=== PATIENT | female | born 1985 | race Hispanic/Latino ===

== ENCOUNTER 2020-06-18 15:26 | Outpatient (CLI) | payer BC | END 2020-06-18 15:27 | disposition home or self-care (01) | LOC: BICULT 15:26 | PROVIDERS: ATTEND Student in an Organized Health Care Education/Training Program | DX: N64.4 Mastodynia (principal) | CPT/HCPCS: 76999 ==

== ENCOUNTER 2024-02-19 13:35 | Outpatient (CLI) | payer BC | END 2024-02-19 13:36 | disposition home or self-care (01) | LOC: SCSRAD 13:35 | PROVIDERS: ATTEND Student in an Organized Health Care Education/Training Program | DX: J40 Bronchitis, not specified as acute or chronic (principal); R05.1 Acute cough | CPT/HCPCS: 71046 ==